=== PATIENT | female | born 1955 | race American Indian/Alaskan Native ===

== ENCOUNTER 2017-06-03 08:59 | Day surgery (SDC) | payer BC ==
[2017-05-31 08:57] VITALS: BMI 34.5
--- NOTE | 2017-06-03 10:58 | CP.SDSHP ---
Same Day Surgery H & P - History Proposed Procedure: US guided FNA of submandibular node. Pre-Op Diagnosis: submandibular node. - Allergies Allergies: Allergies latex Allergy (Intermediate, Verified 06/03/17 09:15) RASH - Physical Exam Vital Signs: Vital Signs 06/03/17 09:16 Temperature 97.8 F Pulse Rate 89 Respiratory 18 Rate Blood Pressure 130/78 O2 Sat by Pulse 97 Oximetry Mental Status: Alert & Oriented x3 Neuro: WNL Heart: WNL - {Optional Preform as Required} ENT: Other (palpable nodule submental and right submandibular area.) - Impression Impression: Enlarged 2 cm right submandibular node. Plan US guided FNA. Pt. Evaluated Today:Candidate for Anesthesia & Procedure: No Short Stay Discharge - Short Stay Discharge Admitting Diagnosis/Reason for Visit: NECK MASS Disposition: HOME/ ROUTINE
--- NOTE | 2017-06-03 11:01 | PCM.SURG1 ---
Surgeon's Initial Post Op Note - Surgeon's Notes Surgeon: North Gonzales MD General Internal Medicine Doctor: None Type of Anesthesia: Local Pre-Operative Diagnosis: Lymphadenopathy Operative Findings: 2 cm irregular submental node. Post-Operative Diagnosis: Lymphadenopathy Operation Performed: US guided FNA Specimen/Specimens Removed: 25 g FNA X 6 passes sent for flow cytometry and histolgY. Estimated Blood Loss: EBL {In ML}: 0 Blood Products Given: N/A Drains Used: No Drains Post-Op Condition: Good Date of Surgery/Procedure: 06/03/17 Time of Surgery/Procedure: 10:55
[2017-06-03 11:33] VITALS: BP 127/78; PULSE 65; RESP 20; TEMP 98; O2SAT 100
--- NOTE | 2017-06-07 12:59 | US ---
PROCEDURE: Date of procedure: 06/03/2017 Procedure: Ultrasound-guided FNA of right supraclavicular lymph node, CPT 29559 Ultrasound guidance for biopsy, 59233 Medications: 3cc 1% Lidocaine HISTORY: Multiple cervical lymph nodes with a 2.3 cm right submandibular lymph node. TECHNIQUE: Following informed consent and procedure time-out, limited ultrasound patient's right neck demonstrates multiple lymph nodes which are ovoid shape and hypoechoic. Largest right supraclavicular lymph node measures 2.3 cm. The patient's neck was prepped and draped in the usual sterile fashion. The skin was anesthetized with 1 percent lidocaine. Ultrasound-guided fine needle aspiration was then performed using a 25 gauge needle. A total of 6 passes were made into the lymph node under direct ultrasound guidance. FNA specimens were obtained and sent for routine pathology and flow cytometry. A post biopsy ultrasound showed no hematoma IMPRESSION: Ultrasound-guided biopsy of enlarged right neck lymph node.
== END 2017-06-03 11:35 | disposition home or self-care (01) ==
LOC: C.SPRAD 08:59
PROVIDERS: ATTEND Radiology Vascular & Interventional Radiology
DX: R59.1 Generalized enlarged lymph nodes (principal)